=== PATIENT | female | born 1955 | race Two or more races ===

== ENCOUNTER 2018-12-18 14:02 | Emergency (ER) | payer OTHER, MEDICAID ==
[~2018-12-18] VITALS: Ht 162.6 cm; Wt 81.6 kg
[2018-12-18 14:02] VITALS: BP 184/90
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
[2018-12-18] MEDS ORDERED: TRAMADOL HCL50 MG ORAL (14:13)
[2018-12-18] MEDS ORDERED: HYDROCHLOROTHIA25 MG ORAL (14:13)
[2018-12-18] MEDS ORDERED: CATAPRES0.1 MG ORAL (14:13)
[2018-12-18] MEDS ORDERED: PROZAC10 MG ORAL (14:13)
[2018-12-18] MEDS ORDERED: Isovue-370 150ml vial INJ PRN (14:15)
[2018-12-18] MEDS ORDERED: Isovue-300 100ml vial INJ PRN (14:15)
--- NOTE | 2018-12-18 14:23 | NUR ---
ED Nurse Note: NOTIFIED ERMD THAT PT REFUSED BLOOD DRAW, ERMD SPOKE WITH PT. PER ERMD, NO BLOOD WORK AND EKG NEED TO BE DONE. PT MADE AWARE.
--- NOTE | 2018-12-18 14:44 | NUR ---
ED Nurse Note: PT SENT DOWN TO CT IN WHEELCHAIR. REMAINS STABLE.
--- NOTE | 2018-12-18 14:58 | NUR ---
ED Nurse Note: PT CAME BACK FROM CT, REMAINS STABLE.
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
[2018-12-18] MEDS ORDERED: IBUPROFEN600 MG ORAL (16:10)
[2018-12-18] MEDS ORDERED: CYCLOBENZAPRINE10 MG ORAL (16:10)
[2018-12-18 16:22] VITALS: BP 184/90
--- NOTE | 2018-12-18 16:23 | NUR ---
ED Nurse Note: Pt cleared by health care Provider for discharge. DC instructions/prescription was given and explained to pt and verbalized understanding of teachings. All medical deviecs such as ID band removed. Pt is AAO x4, ambulatory and left with all personal belongings.
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
== END 2018-12-18 16:23 | disposition home or self-care (01) ==
LOC: EDBD 14:02 → EMR 14:21
DX: S13.4XXA Sprain of ligaments of cervical spine, initial encounter (principal); S20.01XA Contusion of right breast, initial encounter; I10 Essential (primary) hypertension; V43.62XA Car passenger injured in collision with other type car in traffic accident, initial encounter; Y92.410 Unspecified street and highway as the place of occurrence of the external cause; F41.9 Anxiety disorder, unspecified; R07.9 Chest pain, unspecified
CPT/HCPCS: 71045; 72125; 72128; 99284